=== PATIENT | male | born 1935 | race Caucasian/White ===

== ENCOUNTER 2024-05-04 14:32 | Emergency (ER) | payer MEDICARE, SELFPAY ==
[2024-05-04] VITALS (9 sets, daily range): BP systolic 115–155; BP diastolic 58–68; PULSE 56–74; RESP 16–19; TEMP 36.6–37.4; O2SAT 96–100; BMI 26.1
--- NOTE | 2024-05-04 14:42 | DI.RAD.S_ITS ---
PROCEDURE: XR KNEE LT 3V INDICATIONS: recent knee replacement, fall, incision re opened TECHNIQUE: 3 views of the knee were acquired. COMPARISON: None. FINDINGS: Bones: Left knee arthroplasty. Hardware components are in expected position. No fractures or dislocations. No suspicious bony lesions. Soft tissues: Moderate-sized suprapatellar joint effusion.. No suspicious soft tissue calcifications. IMPRESSION: No acute bony abnormality. Moderate-sized nonspecific joint effusion. Dictated by: Edwige King MD, PhD on 05/04/2024 at 15:17 Approved by: Edwige King MD, PhD on 05/04/2024 at 15:18
--- NOTE | 2024-05-04 14:50 | DI.RAD.S_ITS ---
PROCEDURE: XR KNEE RT 3V INDICATIONS: fall, swelling, knee replacement 6 months ago TECHNIQUE: 3 views of the knee were acquired. COMPARISON: [facility], CR, XR KNEE LT 3V, 05/04/2024, 14:48. FINDINGS: Bones: Right knee arthroplasty. Hardware components are in expected position. No fractures or dislocations. No suspicious bony lesions. Soft tissues: No joint effusion. No suspicious soft tissue calcifications. IMPRESSION: No acute bony abnormality or significant effusion. Dictated by: Edwige King MD, PhD on 05/04/2024 at 15:18 Approved by: Edwige King MD, PhD on 05/04/2024 at 15:19
--- NOTE | 2024-05-04 15:22 | ED.LOWEXIN ---
HPI - Extremity Injury (Lower) General Chief Complaint: Extremity Injury, Lower Stated Complaint: GLF Time Seen by Provider: 05/04/24 14:55 Source: patient, EMS, RN notes reviewed and old records reviewed Mode of arrival: EMS Limitations: no limitations History of Present Illness HPI Narrative: 88-year-old history of bilateral knee replacement the right at 6 months of the left at 3 months. Today patient tripped on a edge of a stair and fell forward onto his knees. He has a left knee split open along the line of his incision. Right knee has some small abrasions but is intact. Patient states he has been able to weightbear and ambulate without issue and presents because of the large laceration across his knee. States he did hit his head he has a small abrasion, he states no loss of consciousness. No anticoagulants. No neck or back pain, no chest pain or shortness of breath. No other GI or urinary symptoms. Patient states he has some mild pain in his knees but relatively well-controlled. He states both incisions healed well although his right knee took a little bit longer to heal. Patient states he did not have any issues with infections or difficulty with his wounds postsurgically. Patient lives in [place], he is returning tomorrow. Patient states no known drug allergies. He is unsure of his tetanus status. Former tobacco, no alcohol, no recreational drugs. Related Data Allergies Allergy/AdvReac Type Severity Reaction Status Date / Time No Known Drug Allergies Allergy Verified 05/04/24 14:39 Review of Systems Review of Systems ROS Unobtainable: All systems reviewed & are unremarkable except as noted in HPI and below Patient History Social History Smoking Status: Former smoker Smoking Status: Former smoker alcohol intake frequency: other Substance Use Type: does not use Exam Narrative Exam Narrative: GEN: Patient appears in mild distress. HEAD: Patient has a small abrasion on the left parietal scalp,, no raccoon/Joshi sign. NECK: Nontender, painless range of motion, trachea midline Negative Nexus criteria, no midline line tenderness, distracting injury, altered mental status, neuro deficit, recent EtOH. EYES: PERRLA, EOMI ENT: External inspection normal, trachea is midline, TM's are normal no hemotypanum, Nares are clear, no septal hematoma, no dental or oral injury, airway is normal and with normal occlusion, No bony tenderness RESP: Chest is nontender and has symmetric movement, no ecchymosis, breath sounds are normal no crackles, wheezes or rales CVS: Heart sounds are normal, no murmur noted, No JVD. ABG/GI: Nontender, soft, normal bowel sounds, no distention, no organomegaly, pelvic rock is negative NEURO: Oriented AOx3, neuro is grossly intact, sensation and motor is normal all 4 extremities moving, cranial nerves II through XII are intact, GCS is 15 PSYCH: Normal mood and affect SKIN: Patient has a large vertical incision over his left knee consistent for his incision from his prior knee replacement was, right knee has a small abrasion but otherwise intact, warm and dry, no crepitus and without decubitus BACK: No CVA tenderness, no vertebral tenderness, no step-off's, no crepitus EXT: See above for description of laceration, patient does not have any bony tenderness throughout his bilateral lower extremities. Hips are nontender, no pedal edema, normal color and temperature, normal range of motion of extremities with normal tendon exam, 2+ pulses in all four extremities Initial Vital Signs Initial Vital Signs: Vital Signs Temperature 99.3 F 05/04/24 14:39 Pulse Rate 66 05/04/24 14:39 Respiratory Rate 19 05/04/24 14:39 Blood Pressure 123/68 05/04/24 14:39 Pulse Oximetry 98 05/04/24 14:39 Oxygen Delivery Method Room Air 05/04/24 14:39 Procedures Laceration Repair Laceration 1: Site: lower extremity Side (If applicable): left Size (cm): 10 Description: linear Depth: simple, single layer Local Anesthetic: lidocaine 2% Amount of anesthesia used (mL): 7 Pre-repair: wound explored, irrigated extensively and deep structures intact Skin layer closed with: rj (#14) Course Orders Ordered: Discontinued Medications Bacitracin (Bacitracin Oint 0.9 Gm Pckt) 1 applic TOP NOW ONE Stop: 05/04/24 16:11 Last Admin: 05/04/24 16:28 Dose: 1 applic Documented By: LETY Diphtheria/Tetanus/Acell Pertussis (Tet,Diph,Pertuss(Acell),Vac/Pf 0.5 Ml Syringe) 0.5 ml IM .ONCE ONE Stop: 05/04/24 15:40 Last Admin: 05/04/24 15:50 Dose: 0.5 ml Documented By: LETY Lidocaine HCl (Lidocaine 2% Inj Sdv 5ml) 5 ml INJ INTRA-OP ONE Stop: 05/04/24 15:39 Last Admin: 05/04/24 15:50 Dose: 5 ml Documented By: LETY Vital Signs Vital signs: Vital Signs - 8 hr 05/04/24 14:39 05/04/24 14:47 05/04/24 15:00 Temperature 99.3 F Pulse Rate 66 68 67 Respiratory Rate 19 Blood Pressure 123/68 Pulse Oximetry 98 96 96 Oxygen Delivery Method Room Air 05/04/24 15:00 Temperature Pulse Rate Respiratory Rate Blood Pressure 120/58 L Pulse Oximetry Oxygen Delivery Method MDM - Extremity Injury (Lower) Imaging Data Extremity x-ray #1: Radiologist's Impression: Jose Richey??88??M??1935 ? Allergy/Adv: No Known Drug Allergies Close Knee X-Ray (Signed) Edwige King - 05/04/24 Knee X-Ray 05/04/24 Launch?[place] [address] XRay Report Signed Patient: Jose Richey MR#: [id number] : 1935 Acct:[id number] Age/Sex: 88 / M Date of Service: 05/04/24 Loc: ED Accession Number: [id number] Procedure: XR knee RT 3V Ordering Provider: Rosario Montiel D.O. PROCEDURE: XR KNEE RT 3V INDICATIONS: fall, swelling, knee replacement 6 months ago TECHNIQUE: 3 views of the knee were acquired. COMPARISON: [facility], CR, XR KNEE LT 3V, 05/04/2024, 14:48. FINDINGS: Bones: Right knee arthroplasty. Hardware components are in expected position. No fractures or dislocations. No suspicious bony lesions. Soft tissues: No joint effusion. No suspicious soft tissue calcifications. IMPRESSION: No acute bony abnormality or significant effusion. Dictated by: Edwige King MD, PhD on 05/04/2024 at 15:18 Approved by: Edwige King MD, PhD on 05/04/2024 at 15:19 Extremity x-ray #2: Radiologist's Impression: Left knee no acute bony abnormality moderate size nonspecific joint effusion. MDM Narrative Medical decision making narrative: 88-year-old male with mechanical ground level fall onto bilateral knees. Patient has a large laceration over the area of his incision from his prior knee replacement 3 months ago. Does have some other small abrasions. Patient has been able to weightbear without any issues. Does have an abrasion on his forehead states he did not his head lightly. No other red flag symptoms. He has not anticoagulated. Defers additional imaging. Patient unsure of his tetanus status was updated. Bilateral knee x-rays show no fracture or changes to hardware, left lower extremity has a moderate joint effusion none red on the right lower extremity. Wound was irrigated, explored, after discussion of sutures versus rj patient's agreeable to either. Patient had 14 rj placed. Discussed with patient to watch closely for potential infection although no red flag changes he had no infection prior to his fall. Knee immobilizer to prevent wound from reopening. Patient's follow up in 10 days for removal. Discharge Plan Departure Patient Disposition: Home Clinical Impression: Laceration of knee Instructions: DI for Laceration Repair -- Rj Activity Restrictions/Additional Instructions: Wound Care: Keep wound(s) clean and dry. Wash daily with soap and water only. Do not use over the counter products (alcohol or peroxide)on the wounds unless instructed by a physician. Can use triple antibiotic ointment over the affected area. If wound condition worsens (increased/expanding redness, developing fluid blisters, or worsening pain), either contact your doctor for an urgent re-assessment , or return to the Emergency Department. Return to the Emergency Department for any new or worsening symptoms. Return to the ED, urgent care, or primary care for staple removal in 7-10 days. Return if fever greater than 100.4 Fahrenheit, increased swelling, increasing pain or worsening symptoms such as increased discharge or spreading redness, severe headaches, neck pain, any alterations in mental status, nausea or vomiting, new numbness, tingling or weakness, loss of bowel or bladder control, chest pain or shortness of breath or other new or concerning changes. Referrals: Miscellaneous,MD Nuno [Primary Care Provider] - Stand Alone Forms: Patient Portal/API
[2024-05-04] MEDS: LIDOCAINE 2% INJ SDV 5ML 5 ML INJ (15:50)
[2024-05-04] MEDS: TET,DIPH,PERTUSS(ACELL),VAC/PF 0.5 ML SYRINGE IM (15:50)
[2024-05-04] MEDS: BACITRACIN OINT 0.9 GM PCKT 1 APPLIC TOP (16:28)
== END 2024-05-04 17:17 | disposition home or self-care (01) ==
PROVIDERS: Emergency Provider Emergency Medicine
DX: S81.012A Laceration without foreign body, left knee, initial encounter (principal); S09.90XA Unspecified injury of head, initial encounter; S00.91XA Abrasion of unspecified part of head, initial encounter; Z23 Encounter for immunization; W10.9XXA Fall (on) (from) unspecified stairs and steps, initial encounter; Z96.653 Presence of artificial knee joint, bilateral
CPT/HCPCS: 12004; 73562; 90471; 99283; 90715